=== PATIENT | male | born 1955 | race Caucasian/White ===

== ENCOUNTER 2022-03-11 09:38 | Observation (INO) ==
--- NOTE | 2021-10-28 10:42 | PAT Medication Instructions ---
Medication Instructions Date of Service October 28, 2021 Home Medications aspirin 325 mg tablet 325 mg PO QAM atorvastatin 80 mg tablet 80 mg PO HS calcium 600 mg capsule 600 mg PO BID cholecalciferol (vitamin D3) 50 mcg (2,000 unit) tablet (Vitamin D3) 50 mcg PO HS clobetasol 0.025 % topical cream 1 applic TOPICAL UD PRN clonidine 0.1 mg/24 hr weekly transdermal patch 0.1 mg TOPICAL WK darolutamide 300 mg tablet (Nubeqa) 300 mg PO UD diclofenac sodium 1 % topical gel 2 g TOPICAL QID PRN diltiazem HCl 360 mg capsule,24 hr,extended release 360 mg PO QAM empagliflozin 25 mg tablet (Jardiance) 25 mg PO QAM fexofenadine 180 mg tablet 180 mg PO QAM gabapentin 300 mg capsule 300 mg PO BID insulin aspart (niacinamide)(U-100) 100 unit/mL(3 mL) subcutaneous pen (Fiasp FlexTouch U-100 Insulin) 15 unit SUBCUT WM labetalol 100 mg tablet 100 mg PO BID leflunomide 20 mg tablet 20 mg PO QAM leuprolide (3 month) 11.25 mg (3 month) intramuscular syringe kit (Lupron Depot) 11.25 mg IM UD lisinopril 20 mg-hydrochlorothiazide 12.5 mg tablet 1 tab PO BID metformin 1,000 mg tablet 1,000 mg PO BID omega-3 fatty acids-vitamin E 1,000 mg capsule 1 cap PO HS omeprazole 20 mg capsule,delayed release 20 mg PO QAM oxycodone 5 mg capsule 5 mg PO Q4H PRN ropinirole 1 mg tablet 1 mg PO HS semaglutide 1 mg/dose (2 mg/1.5 mL) subcutaneous pen injector (Ozempic) 1 mg SUBCUT WK sertraline 50 mg tablet 50 mg PO BID Continue as directed clonidine 0.1 mg/24 hr weekly transdermal patch 0.1 mg TOPICAL WK (do not put on or near surgery site) semaglutide 1 mg/dose (2 mg/1.5 mL) subcutaneous pen injector (Ozempic) 1 mg SUBCUT WK ASK your surgeon for instructions diclofenac sodium 1 % topical gel 2 g TOPICAL QID PRN ASK your prescriber and surgeon darolutamide 300 mg tablet (Nubeqa) 300 mg PO UD leflunomide 20 mg tablet 20 mg PO QAM leuprolide (3 month) 11.25 mg (3 month) intramuscular syringe kit (Lupron Depot) 11.25 mg IM UD STOP taking 2 weeks before surgery omega-3 fatty acids-vitamin E 1,000 mg capsule 1 cap PO HS STOP taking 24 hours before surgery clobetasol 0.025 % topical cream 1 applic TOPICAL UD PRN ropinirole 1 mg tablet 1 mg PO HS DO NOT take the morning of surgery calcium 600 mg capsule 600 mg PO BID empagliflozin 25 mg tablet (Jardiance) 25 mg PO QAM fexofenadine 180 mg tablet 180 mg PO QAM insulin aspart (niacinamide)(U-100) 100 unit/mL(3 mL) subcutaneous pen (Fiasp FlexTouch U-100 Insulin) 15 unit SUBCUT WM lisinopril 20 mg-hydrochlorothiazide 12.5 mg tablet 1 tab PO BID metformin 1,000 mg tablet 1,000 mg PO BID Take morning of surgery With a small sip of water, OTHERWISE NOTHING TO EAT OR DRINK AFTER MIDNIGHT: aspirin 325 mg tablet 325 mg PO QAM diltiazem HCl 360 mg capsule,24 hr,extended release 360 mg PO QAM gabapentin 300 mg capsule 300 mg PO BID labetalol 100 mg tablet 100 mg PO BID omeprazole 20 mg capsule,delayed release 20 mg PO QAM oxycodone 5 mg capsule 5 mg PO Q4H PRN(okay to take up to 4 hours prior to surgery if needed) sertraline 50 mg tablet 50 mg PO BID Take evening before surgery atorvastatin 80 mg tablet 80 mg PO HS calcium 600 mg capsule 600 mg PO BID cholecalciferol (vitamin D3) 50 mcg (2,000 unit) tablet (Vitamin D3) 50 mcg PO HS gabapentin 300 mg capsule 300 mg PO BID labetalol 100 mg tablet 100 mg PO BID lisinopril 20 mg-hydrochlorothiazide 12.5 mg tablet 1 tab PO BID metformin 1,000 mg tablet 1,000 mg PO BID oxycodone 5 mg capsule 5 mg PO Q4H PRN(if needed) sertraline 50 mg tablet 50 mg PO BID Other Notes If you have any questions please call us at [phone] or [phone] or [phone] or [phone]
--- NOTE | 2021-11-01 10:33 | Anesthesiology Consultation ---
Date of Service November 01, 2021 Assessment & Plan (1) Encounter for pre-operative examination: Chart Review Chart Review: Acceptable Risk for Surgery (pending response from PCP re: anemia and preop Covid testing results ) and Patient seen in Pre Admission Testing -Will send note to PCP inquiring if anemia is baseline for patient or if further follow up needed - Check BSG AM DOS Per PAT appt on 11/01/21, patient denies any recent travel or large group activities. No known Covid positive exposures or Covid related symptoms. No known Covid infection in the past 90 days. Pt is vaccinated for Covid. Preop Covid testing scheduled 11/19/21 = will await results. Educated on importance of self quarantining, social distancing and wearing mask in public for the patient one week prior to surgery and after Covid testing done Teaching & Discussion Pre-Anesthesia Teaching/Discussion Notes: Instructed NPO after midnight before surgery,except medications with 15 cc of water. Medication instructions provided according to the PAT guidelines. History Surgery Operation Date: 11/23/21 07:00 Proposed Procedures p Right Total Knee Arthroplasty - Ryland Muse MD Height/Weight Height: 5 ft 8 in Weight: 114.7 kg Allergies Allergy/AdvReac Type Severity Reaction Status Date / Time Penicillins AdvReac Mild Diarrhea Verified 10/27/21 10:17 Medications Home Medications Medication Instructions Recorded Confirmed Last Taken aspirin 325 mg tablet 325 mg PO QAM 10/27/21 10/27/21 Unknown atorvastatin 80 mg tablet 80 mg PO HS 10/27/21 10/27/21 Unknown calcium 600 mg capsule 600 mg PO BID 10/27/21 10/27/21 Unknown cholecalciferol (vitamin D3) 50 50 mcg PO HS 10/27/21 10/27/21 Unknown mcg (2,000 unit) tablet (Vitamin D3) clobetasol 0.025 % topical cream 1 applic TOPICAL UD PRN 10/27/21 10/27/21 Unknown clonidine 0.1 mg/24 hr weekly 0.1 mg TOPICAL WK 10/27/21 10/27/21 Unknown transdermal patch darolutamide 300 mg tablet (Nubeqa) 300 mg PO UD 10/27/21 10/27/21 Unknown diclofenac sodium 1 % topical gel 2 g TOPICAL QID PRN 10/27/21 10/27/21 Unknown diltiazem HCl 360 mg capsule,24 360 mg PO QAM 10/27/21 10/27/21 Unknown hr,extended release empagliflozin 25 mg tablet 25 mg PO QAM 10/27/21 10/27/21 Unknown (Jardiance) fexofenadine 180 mg tablet 180 mg PO QAM 10/27/21 10/27/21 Unknown gabapentin 300 mg capsule 300 mg PO BID 10/27/21 10/27/21 Unknown insulin aspart 15 unit SUBCUT WM 10/27/21 10/27/21 Unknown (niacinamide)(U-100) 100 unit/mL(3 mL) subcutaneous pen (Fiasp FlexTouch U-100 Insulin) labetalol 100 mg tablet 100 mg PO BID 10/27/21 10/27/21 Unknown leflunomide 20 mg tablet 20 mg PO QAM 10/27/21 10/27/21 Unknown leuprolide (3 month) 11.25 mg (3 11.25 mg IM UD 10/27/21 10/27/21 Unknown month) intramuscular syringe kit (Lupron Depot) lisinopril 20 1 tab PO BID 10/27/21 10/27/21 Unknown mg-hydrochlorothiazide 12.5 mg tablet metformin 1,000 mg tablet 1,000 mg PO BID 10/27/21 10/27/21 Unknown omega-3 fatty acids-vitamin E 1 cap PO 10/27/21 10/27/21 Unknown 1,000 mg capsule omeprazole 20 mg capsule,delayed 20 mg PO [facility] 10/27/21 10/27/21 Unknown release oxycodone 5 mg capsule 5 mg PO Q4H PRN 10/27/21 10/27/21 Unknown ropinirole 1 mg tablet 1 mg PO HS 10/27/21 10/27/21 Unknown semaglutide 1 mg/dose (2 mg/1.5 1 mg SUBCUT WK 10/27/21 10/27/21 Unknown mL) subcutaneous pen injector (Ozempic) sertraline 50 mg tablet 50 mg PO BID 10/27/21 10/27/21 Unknown Past Medical History Medical History Depression Diabetes mellitus, type 2 Glucose stable Fibromyalgia Stable GERD (gastroesophageal reflux disease) Well controlled and stable History of anemia Hx of iron infusions in the past- no recent infusions History of prostate cancer Dx'ed around 2001 SURGERY (PROSTATECTOMY) AND RADIATION Follows with heme/onc in [place] - on Lupron and Nubeqa Hyperlipidemia Hypertension Restless leg syndrome Exercise / Class Metabolic Activity II 4-5 Yardwork/Stairs/Walk up hill (one flight of stairs - no chest pain or SOB- activity limited due to knee pain ) Past Family History Family History Brother Family history of diabetes mellitus Other No family history of adverse response to anesthesia Past Surgical History Surgical History H/O foot surgery LEFT H/O prostatectomy History of colonoscopy History of esophagogastroduodenoscopy (EGD) History of repair of rotator cuff LEFT History of tooth extraction Past Anesthesia History No Hx of Anesthesia Complications and No Family Hx of Anesthesia Complications History of PONV No Hx of PONV and No Hx of Motion Sickness Social History Smoking Status: Former smoker tobacco type: cigarettes Do You Dip or Chew Tobacco: No Smoking End Date: 20 YEARS AGO Hx Alcohol Use: No substance use type: does not use Review of Systems Hx of blood transfusion with prostate cancer- used own blood - s/p prostatectomy (2001) Patient denies chest pain, shortness of breath, dyspnea on exertion, cough, wheezing, palpitations. No hx of seizures, stroke, WI, apnea/snoring. No hx of blood clots. Physical Exam Vital Signs VITALS BP 160/80 (advised patient to monitor at home and call PCP if remains elevated) P 71 TEMP 98.6 SP02 94% RESP 16 Constitutional no acute distress ENMT Mouth: no TMJ clicking Thyromental Distance: > or= 3.5 Finger Breadths (3.5) Mallampati Class: I Missing molars Cap on top right front tooth Crowns to molars Neck + facial hair (advised patient to trim cordova ); neck extension not limited Respiratory normal respiratory effort; no respiratory distress Auscultation: lungs clear to auscultation bilaterally; no wheezes Cardiovascular Rate/Rhythm: regular rate and regular rhythm Heart Sounds: no murmur Vessels: no carotid bruit Musculoskeletal Spine: no pain with cervical ROM Extremities: extremities normal to inspection Psychiatric Orientation: alert Lab Results Anesthesia Preop Results Results Anesthesia Widget: WBC 7.13 K/uL (4.8-10.8) 11/01/21 Hgb 10.4 g/dL (14.0-18.0) L 11/01/21 Hct 34.5 % (42-52) L 11/01/21 Plt 309 K/uL (130-400) 11/01/21 Na 141 mmol/L (136-145) 11/01/21 K 4.6 mmol/L (3.5-5.1) 11/01/21 Cl 104 mmol/L (98-107) 11/01/21 CO2 31 mmol/L (21-32) 11/01/21 BUN 17 mg/dl (6-23) 11/01/21 Creat 1.00 mg/dl (0.6-1.4) 11/01/21 Glucose Level 111 mg/dl (70-99(Fasting)) H 11/01/21 PT 9.5 Seconds (9.0-12.0) 11/01/21 PTT 26.5 Seconds (21.0-31.0) 11/01/21 INR 0.9 (0.9-1.1) 11/01/21 HA1c 7.3 % (4.5-5.6) H 11/01/21 Blood Type B Positive 11/01/21 Antibody Screen NEGATIVE 11/01/21 Lab Comments: Anemia noted on preop labs- surgeon's office informed; also sent note to PCP Testing Electrocardiogram Date: 11/01/21 Findings: + NSR @ (68bpm) Normal EKG per cardio. Chest X-Ray Date: 11/01/21 Findings: + NAD
--- NOTE | 2021-11-19 17:48 | History and Physical Report ---
DATE OF ADMISSION: 11/26/2021. CHIEF COMPLAINT: Bilateral knee pain and discomfort, right side greater than the left. HISTORY OF PRESENT ILLNESS: The patient is a 66-year-old gentleman and former [employer] employee who presents specifically for surgical treatment of his right knee. He has got a long history of knee problems, right side a bit worse than the left. He has been through extensive conservative treatment provided by the [facility] in [place]. This has become less successful over time. The right knee bothers him all the time and the left side just a little bit less. He limps more as the day goes on. He has got chronic pain. It always hurts. The more he walks, the more it hurts. He has a walking tolerance of a couple blocks. He has lost 50 pounds over the past couple months intentionally and still limited by his knee pain. He has been taking oxycodone provided by his primary care doctor to manage his pain. PAST MEDICAL HISTORY: Significant for: 1. Anemia, chronic. 2. Hypertension. 3. Elevated cholesterol. 4. Diabetes x15 years. 5. Obesity with a 50-pound weight loss. 6. Gastroesophageal reflux disease. 7. Low back pain/sciatica. 8. Prostate cancer. PAST SURGICAL HISTORY: Includes: 1. Vasectomy. 2. Prostatectomy. 3. Rotator cuff surgery by Dr. Maria x2. 4. Foot surgery. ALLERGIES: PENICILLIN, WHICH CAUSES DIARRHEA. NOT A TRUE ANAPHYLAXIS. CURRENT MEDICATIONS: Include: 1. Aspirin 325 one daily. 2. Atenolol 100 mg daily. 3. Glipizide 10 mg. 4. Lovastatin 40 mg. 5. Metformin 1000 mg twice a day. 6. Multivitamin. 7. Nifedipine 60 mg. 8. Feldene. 9. Avandia. 10. Prilosec 20 mg a day. SOCIAL HISTORY: A 66-year-old male. Lives in [place]. He is a retired [employer] employee. . Does not smoke. FAMILY HISTORY: Noncontributory. REVIEW OF SYSTEMS: Significant for anemia. He is diabetic for 15 years. No chest pain or shortness of breath. No history of DVT or PE. PHYSICAL EXAMINATION: GENERAL: Shows a pleasant middle-aged male. Looks to be in reasonably good health. HEENT: Benign. NECK: Supple. No lymphadenopathy. LUNGS: Clear to auscultation. HEART: Regular rate and rhythm. ABDOMEN: Soft, nontender, nondistended. EXTREMITIES: Grossly neurovascularly intact except as follows. Examination of the right knee revealed patient ambulates with a bit of a limp. He has got varus alignment to his knee. Range of motion about 5 degrees short of full extension and 120 degrees of flexion. He has got bony hypertrophy medially. There is no instability. No pain with hip motion. X-RAYS: X-rays of the right knee reveal advanced right knee degenerative joint disease. He has got complete loss of medial joint space. He has got subchondral sclerosis. He has got tricompartment disease. He has pretty similar, but less severe disease in his left knee. ASSESSMENT: A 66-year-old male with multiple medical problems including obesity, hypertension, chronic anemia, elevated cholesterol, diabetes, obesity, prostate cancer with advanced bilateral knee degenerative joint disease, right side quite a bit worse than the left. He has lost 50 pounds without much relief in his symptoms. He is limited by his knee pain, would like to have his right knee fixed. PLAN: We will take him to the operating room and do right total knee replacement. The risks and benefits of the right knee replacement were explained to the patient include but not limited to DVT, PE, , infection, neurological injury, vascular injury, bleeding problem, pain, limited range of motion, stiffness, failure to relieve his symptoms, incomplete relief of symptoms, need for further surgery in the future, fracture, leg length inequality, nerve palsy, and persistent pain. The patient understands and desires to proceed. Informed consent was obtained. His preoperative workup showed that he was anemic with a hemoglobin 10.4. We checked with his medical doctor and this is his baseline state. We will likely provide him with some iron supplementation postoperatively. He is going to try and get his blood glucose under better control. He will hold his metformin on the morning of surgery and take the metoprolol and the Prilosec. He is planning on using [facility] program. Job ID: [id number] [facility]
--- NOTE | 2022-03-05 12:47 | History and Physical Report ---
DATE OF ADMISSION: 03/11/2022 CHIEF COMPLAINT: Bilateral knee pain and discomfort, right side greater than left. HISTORY OF PRESENT ILLNESS: The patient is a 67-year-old gentleman and former [employer] employee wh o presents for treatment of his knees, particularly surgical treatment of his right knee. He has a l sandra history of knee problems right side a bit worse than left. He has been through extensive conserv ative treatment provided by the [facility] in [place]. He has had shots, which have become les s successful over time. He describes global pain in his knee. The more he is up on it, the more it hurts. He limps more as the day goes on. He would like to proceed with knee replacement on the [facility] t side. He has been scheduled on multiple occasions and canceled most recently for COVID positive te st. The patient has lost about 50+ pounds over the past several months and still limited by his pain. PAST MEDICAL HISTORY: 1. Hypertension. 2. Elevated cholesterol. 3. Diabetes x15 years. 4. Obesity with BMI of 39. 5. Gastroesophageal reflux disease. 6. Low back pain/sciatica. 8. Prostate cancer. PAST SURGICAL HISTORY: Includes, 1. Vasectomy. 2. Prostatectomy. 3. Rotator cuff surgery x2. 4. Foot surgery. ALLERGIES: PENICILLIN, WHICH CAUSES DIARRHEA. CURRENT MEDICATIONS: Includes: 1. Aspirin 325 once a day. 2. Atenolol 100 mg daily. 3. Glipizide 10 mg daily. 4. Lovastatin 40 mg daily. 5. Metformin 1000 mg twice a day. 6. Multivitamin. 7. Nifedipine 60 mg daily. 8. Feldene. 9. Avandia. 10. Prilosec. SOCIAL HISTORY: A 67-year-old male. He is retired from [employer]. Lives in [place]. He is marrie d. He does not smoke. FAMILY HISTORY: Noncontributory. REVIEW OF SYSTEMS: Significant for longstanding diabetes. His A1c most recently was 7.1. No chest pain or shortness of breath. No DVT or PE. PHYSICAL EXAMINATION: GENERAL: Shows a pleasant middle-aged male. HEENT: Benign. NECK: Supple. No lymphadenopathy. LUNGS: Clear to auscultation. HEART: Regular rate and rhythm. ABDOMEN: Soft, nontender, nondistended. EXTREMITIES: Grossly neurovascularly intact except as follows. Examination of the right knee reveals the patient walks with a bit of a limp. He has varus alignment to his knee with a varus thrust with weightbearing. He has small knee effusion. Range of motion 5- 120. No instability. No pain with hip motion. X-RAYS: X-rays of the right knee from previously reviewed. It shows advanced right knee degenerativ e joint disease. He has complete loss of medial joint space. He has subchondral sclerosis. He has tricompartment disease. ASSESSMENT: This is a 67-year-old male, former [employer] employee with multiple medical comorbiditi es including longstanding diabetes, hypertension, elevated cholesterol, gastroesophageal reflux disea se, and struggles with pain. He has failed conservative measures and would like to have his knee fix ed. He has advanced knee arthritis. PLAN: We will take him to the operating room and do a right total knee replacement. The risks and b enefits of this procedure were explained to the patient include but not limited to DVT, PE, , in fection, neurological injury, vascular injury, bleeding problem, pain, limited range of motion, stiff ness, failure to relieve symptoms, etc. The patient understands and desires to proceed. Informed co nsent was obtained. He was reminded to take his metoprolol the morning of surgery along with Prilosec and hold on the met formin. We will see him back in 2 weeks postop. Job ID: [id number]
--- NOTE | 2022-03-08 12:06 | Anesthesiology Consultation ---
Date of Service March 08, 2022 Assessment & Plan (1) Encounter for pre-operative examination: Chart Review Chart Review: Acceptable Risk for Surgery (pending preop Covid testing results ) and Patient NOT seen in Pre Admission Testing - Check BSG AM DOS Per nursing assessment 03/08/2022, patient denies any recent travel. No known COVID infection in the past 90 days. Patient is fully vaccinated for COVID. No known Covid positive exposures or Covid related symptoms. Preop Covid testing scheduled 03/09/22= will await results History Surgery Operation Date: 11/26/21 10:40 Proposed Procedures p Right Total Knee Replacement - Ryland Muse MD Operation Date: 12/10/21 08:50 Proposed Procedures p Right Total Knee Arthroplasty - Ryland Muse MD Operation Date: 03/11/22 12:30 Proposed Procedures p Right Total Knee Replacement - Ryland Muse MD Height/Weight Height: 5 ft 8 in Weight: 113.398 kg Medications Home Medications Medication Instructions Recorded Confirmed Last Taken aspirin 325 mg tablet 325 mg PO QAM 10/27/21 03/11/22 03/04/22 atorvastatin 80 mg tablet 80 mg PO HS 10/27/21 03/11/22 03/10/22 20:00 calcium 600 mg capsule 600 mg PO BID 10/27/21 03/11/22 03/10/22 20:00 cholecalciferol (vitamin D3) 50 50 mcg PO HS 10/27/21 03/11/22 03/10/22 20:00 mcg (2,000 unit) tablet (Vitamin D3) clobetasol 0.025 % topical cream 1 applic TOPICAL UD PRN 10/27/21 03/11/22 02/09/22 clonidine 0.1 mg/24 hr weekly 0.1 mg TOPICAL WK 10/27/21 03/11/22 03/07/22 transdermal patch darolutamide 300 mg tablet (Nubeqa) 300 mg PO UD 10/27/21 03/11/22 03/08/22 diclofenac sodium 1 % topical gel 2 g TOPICAL QID PRN 10/27/21 03/11/22 03/09/22 20:00 diltiazem HCl 360 mg capsule,24 360 mg PO QAM 10/27/21 03/11/22 03/11/22 06:30 hr,extended release empagliflozin 25 mg tablet 25 mg PO QAM 10/27/21 03/11/22 03/11/22 06:30 (Jardiance) fexofenadine 180 mg tablet 180 mg PO QAM 10/27/21 03/11/22 03/11/22 06:30 gabapentin 300 mg capsule 300 mg PO BID 10/27/21 03/11/22 03/11/22 06:30 insulin aspart 15 unit SUBCUT WM 10/27/21 03/11/22 03/10/22 20:00 (niacinamide)(U-100) 100 unit/mL(3 15 units mL) subcutaneous pen (Fiasp FlexTouch U-100 Insulin) labetalol 100 mg tablet 100 mg PO BID 10/27/21 03/11/22 03/11/22 06:30 leflunomide 20 mg tablet (Arava) 20 mg PO QAM 10/27/21 03/11/22 03/11/22 06:30 leuprolide (3 month) 11.25 mg (3 11.25 mg IM UD 10/27/21 03/11/22 02/08/22 month) intramuscular syringe kit (Lupron Depot) lisinopril 20 1 tab PO BID 10/27/21 03/11/22 03/11/22 06:30 mg-hydrochlorothiazide 12.5 mg tablet metformin 1,000 mg tablet 1,000 mg PO BID 10/27/21 03/11/22 03/10/22 20:00 omega-3 fatty acids-vitamin E 1 cap PO 10/27/21 03/11/22 03/10/22 20:00 1,000 mg capsule omeprazole 20 mg capsule,delayed 20 mg PO [facility] 10/27/21 03/11/22 03/11/22 06:30 release oxycodone 5 mg capsule 5 mg PO Q4H PRN 10/27/21 03/11/22 03/10/22 21:00 ropinirole 1 mg tablet 1 mg PO 10/27/21 03/11/22 03/10/22 21:00 semaglutide 1 mg/dose (2 mg/1.5 1 mg SUBCUT WK 10/27/21 03/11/22 03/07/22 mL) subcutaneous pen injector (Ozempic) sertraline 50 mg tablet 50 mg PO BID 10/27/21 03/11/22 03/11/22 06:30 3-in-1 Commode #1 ea 11/16/21 Unknown aspirin 81 mg tablet,delayed 81 mg PO BID 45 Days #90 tab 12/07/21 03/11/22 Unknown release (Adult Aspirin Regimen) ketorolac 10 mg tablet 10 mg PO Q6 5 Days #20 tab 12/07/21 03/08/22 Unknown ondansetron HCl 4 mg tablet 4 mg PO Q6 PRN #30 tab 12/07/21 03/11/22 Unknown aspirin 81 mg tablet,delayed 81 mg PO BID 45 Days #90 tab 03/09/22 03/04/22 release (Eun Low Dose Aspirin) oxycodone 5 mg tablet 5 - 10 mg PO Q6 PRN #40 tab 03/09/22 Unknown sennosides 8.6 mg-docusate sodium 1 tab-cap PO DAILY #14 tab 03/09/22 03/11/22 Unknown 50 mg tablet (Senokot-S) tamsulosin 0.4 mg capsule (Flomax) 0.4 mg PO DAILY #7 cap 03/09/22 03/11/22 03/10/22 21:00 Active Medications Generic Name Dose Route Start Last Admin Trade Name Freq PRN Reason Stop Dose Admin Acetaminophen 1,000 mg 03/11/22 06:00 03/11/22 10:45 Acetaminophen 500 Mg Tab PO 03/11/22 18:00 1,000 mg PREOP RUFINO Administration Famotidine 20 mg 03/11/22 06:00 03/11/22 10:45 Famotidine 20 Mg Tab PO 03/11/22 18:00 20 mg PREOP RUFINO Administration Lactated Ringer's 1,000 mls @ 60 mls/hr 03/11/22 06:00 03/11/22 10:43 Lr IV 03/11/22 22:39 Not Given .[id number] RUFINO Lactated Ringer's 1,000 mls @ 15 mls/hr 03/11/22 06:00 03/11/22 10:43 Lr IV 03/11/22 18:00 15 mls/hr .Q24H RUFINO Administration Metoclopramide HCl 10 mg 03/11/22 06:00 03/11/22 10:45 Metoclopramide Hcl 10 Mg Tablet PO 03/11/22 18:00 10 mg PREOP RUFINO Administration Past Medical History Medical History Depression Diabetes mellitus, type 2 Glucose stable Fibromyalgia Stable GERD (gastroesophageal reflux disease) Well controlled and stable History of anemia Hx of iron infusions in the past- no recent infusions History of COVID-19 11/24/2021; asymptomatic History of prostate cancer Dx'ed around 2001 SURGERY (PROSTATECTOMY) AND RADIATION Follows with heme/onc in [place] - on Lupron and Nubeqa Hyperlipidemia Hypertension Restless leg syndrome Past Family History Family History Brother Family history of diabetes mellitus Other No family history of adverse response to anesthesia Past Surgical History Surgical History H/O foot surgery LEFT H/O prostatectomy History of colonoscopy History of esophagogastroduodenoscopy (EGD) History of repair of rotator cuff LEFT History of tooth extraction Social History Smoking Status: Former smoker tobacco type: cigarettes Do You Dip or Chew Tobacco: No Smoking End Date: 20 YEARS AGO Hx Alcohol Use: No Hx Substance Use: No substance use type: does not use Physical Exam Vital Signs Last Vital Signs Temp 36.9 C 03/11/22 10:28 Pulse 72 03/11/22 10:28 Resp 20 03/11/22 10:28 BP 127/72 03/11/22 10:28 Pulse Ox 97 03/11/22 10:28 Lab Results Anesthesia Preop Results Results Anesthesia Widget: WBC 7.19 K/uL (4.8-10.8) 02/21/22 Hgb 10.3 g/dL (14.0-18.0) L 02/21/22 Hct 33.9 % (42-52) L 02/21/22 Plt 313 K/uL (130-400) 02/21/22 Na 139 mmol/L (136-145) 02/21/22 K 4.2 mmol/L (3.5-5.1) 02/21/22 Cl 102 mmol/L (98-107) 02/21/22 CO2 30 mmol/L (21-32) 02/21/22 BUN 25 mg/dl (6-23) H 02/21/22 Creat 1.29 mg/dl (0.6-1.4) 02/21/22 Glucose Level 133 mg/dl (70-99(Fasting)) H 02/21/22 POC Glucose 143 mg/dl (70-99) H 03/11/22 PT 10.2 Seconds (9.0-12.0) 02/21/22 INR 1.0 (0.9-1.1) 02/21/22 HA1c 7.1 % (4.5-5.6) H 02/21/22 SARS-CoV-2, RNA, NAAT NEGATIVE (NEGATIVE) 03/11/22 Blood Type B Positive 02/21/22 Antibody Screen NEGATIVE 02/21/22 Testing Laboratory Results 03/11/22 10:00 POC Glucose 143 H Anemia chronic and stable. Hgb 10.4 and Hct 34.5 on 11/01/21 (pt seen in PAT for right TKA on 11/23/21- rescheduled due to Covid positive)- note sent to PCP - per 11/10/21 PCP note- PCP reviewed CBC- Hgb and Hct are stable for patient.Per PCP: "Ok for surgery." Electrocardiogram Date: 11/01/21 Findings: + NSR @ (68bpm) Normal EKG per cardio. Chest X-Ray Date: 11/01/21 Findings: + NAD
[~2022-03-11 09:38] MED LIST: ACETAMINOPHEN 500 MG TAB PO SCH; BUPIVACAINE LIPOSOME/PF 266 MG, BUPIVACAINE/EPINEPHRINE 50 ML, SODIUM CHLORIDE 0.9% 30 ... INFIL SCH; FAMOTIDINE 20 MG TAB PO SCH; LR 500ML BOLUS, THEN 15ML/HR IV SCH; LR 60ML/HR IV SCH; METOCLOPRAMIDE HCL 10 MG TABLET PO SCH; TRANEXAMIC ACID 1,000 MG **IV Intra-op IV SCH; ceFAZolin 2000MG 2,000 MG/15 ML SYR IV SCH
--- NOTE | 2022-03-11 11:06 | History & Physical Bridge Note ---
Date of Service March 11, 2022 History & Physical Bridge Note I have examined the patient, reviewed the History & Physical and in the interval since the performance of the History & Physical I have noted the following changes of clinical significance: no changes noted
[2022-03-11] MEDS ORDERED: MIDAZOLAM HCL 1 MG/ML 2ML VIAL ONE (12:00)
[2022-03-11] MEDS ORDERED: fentaNYL citrate 100 MCG/2 ML VIAL ONE (12:00)
[2022-03-11] MEDS ORDERED: fentaNYL citrate 100 MCG/2 ML VIAL IV PRN (12:13)
[2022-03-11] MEDS ORDERED: ONDANSETRON INJ 2 MG/ML 2 ML VIAL IV PRN ×2 (12:13→16:26)
[2022-03-11] MEDS ORDERED: ATROPINE SULFATE 0.1 MG/ML 10ML SYR IV PRN (12:13)
[2022-03-11] MEDS ORDERED: ePHEDrine sulfate 50 MG/ML AMP IV PRN (12:13)
[2022-03-11] MEDS ORDERED: PROPOFOL IV EMULSION 10 MG/ML 20 ML VIAL IV ONE (12:45)
[2022-03-11] MEDS ORDERED: SODIUM CHLORIDE 0.9% PF 50 ML VIAL ONE (13:28)
[2022-03-11] MEDS ORDERED: BUPIVACAINE/EPINEPHRINE 0.25% 1:200,000 30 ML VIAL ONE (13:28)
[2022-03-11] MEDS ORDERED: BUPIVACAINE LIPOSOME 1.3% 266 MG/20 ML VIAL ONE (13:29)
[2022-03-11] MEDS ORDERED: ePHEDrine sulfate 50 MG/ML AMP ONE (14:42)
--- NOTE | 2022-03-11 15:34 | Operative Report ---
PG Post Operative Report Pre & Post Diagnosis Operation Date: 11/26/21 10:40 <No data on this case meets the specified criteria> Operation Date: 12/10/21 08:50 <No data on this case meets the specified criteria> Operation Date: 03/11/22 12:30 Pre-Op Diagnosis: Right Knee Advanced Degenerative Joint Disease Post-Op Diagnosis: Right Knee Advanced Degenerative Joint Disease I identified the patient and participated in the time-out.: Yes Procedure Operation Date: 11/26/21 10:40 <No data on this case meets the specified criteria> Operation Date: 12/10/21 08:50 <No data on this case meets the specified criteria> Operation Date: 03/11/22 12:30 Actual Procedures p Right Total Knee Arthroplasty(Right) - Ryland Muse MD Surgeon Ryland Muse MD Coding Technician Marcel Romero PA-C Estimated Blood Loss 50 Findings Consistent with Post-Op Diagnosis Operative findings were advanced right knee DJD involving primarily the medial compartment. He extensive grade 4 change of the entire medial compartment. He had some bony destruction of the tibial plateau. Osteophytes mostly medially. Varus alignment to his knee with a moderate-sized joint effusion. Fluids 1300 cc Specimens Right knee sent for pathology Anesthesia Type Spinal MAC Complications none Disposition Accompanied Patient To Recovery: No Indications Patient is a 67-year-old gentleman has a long history of bilateral knee pain discomfort rates adequate bit worse than the left. Been through extensive conservative treatment of years which became less successful. He has been scheduled for knee replacement several times but canceled due to COVID issues. Now presents for surgical management. Description of Procedure Operative implants consist of: 1 Biomet Vanguard size 65 right posterior stabilized femoral component. 2. Biomet size 75 tibial tray. 3. 12 mm posterior stabilized polyethylene insert. 4. 31 x 8 all Paller patella. 6 the patient was taken the operating, identified, and placed on the operating table supine position. All contact areas were properly padded. IV antibiotics tried by anesthesia team. Spinal anesthetic and abductor canal block had been provided in the holding area. Patel catheter was placed in sterile fashion. A right thigh tent was then placed in the right lower extremities and prepped and draped in usual sterile fashion. The right leg was elevated exsanguinated with use of an Esmarch and the tourniq uet was set at 300 mmHg. An anterior approach of the right knee was then performed to longitudinal incision centered over the patella. Sharp dissection was carried through subcutaneous tissue down the extensor mechanism. A medial parapatellar arthrotomy incision was made. Some subperiosteal dissection was carried out medially. The fat pad was resected from Neath patella tendon. Lateral patellofemoral ligament was released. Patella subluxated laterally and the knee was flexed. The osteophytes were taken off distal femur. The ACL and PCL then released from distal femur and the tibia subluxated anteriorly. External tibial alignment jig was then placed in the interface of the tibia and adjusted 16 mm medially. Proximal tibial cut was made remove about a millimeter bone from the most deficient aspect of medial tibial plateau. Some osteophytes taken off medial and posterior medially. The tibia was then sized to a size 75. Attention drawn the femur. The distal femur stem with a sharp drill. Intramedullary canal was suction. A right 6 degree valgus cutting guide was placed. The distal femoral cutting block was pinned in place. Distal femoral cut was made to take an additional 3 mm bone off distal femur. The femur was then sized to a size 65. The AP cutting block was pinned parallel to the epicondylar axis which was 3 degrees of external rotation. The anterior cut, anterior chamfer, posterior cut, posterior chamfer cuts were made. The box cutting guide was placed in just slight lateral and the box cut was made. The knee was flexed. The remnants of the medial lateral menisci were excised. The osteophytes were taken off the posterior aspect the femur. A trial femoral component was placed. The tibial tray was pinned in maximum external rotation and the drill and stem punch were used to create defect in proximal tibia for the tibial tray. The knee was then trialed and the 12 mm insert fit most appropriately. Attention drawn the patella. The patella was cleaned of all soft tissues. Patella thickness measured 22 mm in thickness and was cut down to 13. Was sized to a size 31 patella. The lug holes were drilled for the 31 patella. The lateral osteophyte was removed. Patella button was placed. Knee was taken through range of motion patella tracked nicely within no thumbs test. Attention drawn to placing permanent components. All trial components were removed. Bone plug was placed in the distal femur limit blood loss. A double batch Palacos G cement was mixed. A Biomet Vanguard size 65 right posterior stabilized femoral component, a size 75 tibial tray, 12 mm posterior stabilized polyethylene insert, and a 31 x 8 all Paller patella then cemented in place. The knee was brought out into full extension until cement hardened. Final cement check was then performed. The pericapsular tissues were injected with total of 100 cc of combination of 20 cc of Exparel, 30 cc normal saline, 50 cc of quarter percent Marcaine with epinephrine. Patient did receive 1 g tranexamic acid. The tourniquet was then let down for final tourniquet time 59 minutes. Hemostasis assured use electrocautery. Extensor mechanism closed with combination 1 PDS suture #1 Vicryl suture in a [id number] fashion. Extensor mechanism checked found to be intact with subcutaneous tissue then closed with 2 Dexon suture in a buried interrupted fashion skin was closed skin albert. Leg was then cleaned and dried and sterile dressed with Xeroform, 4 x 4's, sterile cast padding, Dawson bandage were applied. Patient then transferred to the recovery room in stable condition. Patient tolerated procedure well and there were no complications. Marcel Rmoero, my physician promotions assistant sales marketing, was present for the entire procedure. His assistance was essential and required for appropriate patient positioning, prepping and draping, surgical exposure, performing the technical details of the operation, placement the implants, closure of the wound, and placement of the sterile bandage. I attest to the content of the Intraoperative Record and any orders documented therein. Any exceptions are noted below.
--- NOTE | 2022-03-11 16:12 | Anesthesiology Progress Note ---
Date of Service March 11, 2022 Anesthesia Post Procedure Vital Signs Vital Signs: Temp Pulse Pulse Resp BP Pulse Ox 03/11/22 15:55 72 16 117/67 90 03/11/22 15:45 69 18 137/58 L 94 03/11/22 15:35 69 14 119/67 93 03/11/22 15:27 36.8 C 73 18 109/64 99 03/11/22 10:28 36.9 C 72 20 127/72 97 Pain Intensity Right Knee: Pain Intensity: 5 Transfer of Care Handoff Completed per policy Notes Mental Status: alert / awake / arousable and participated in evaluation Patient Amnestic to Procedure: Yes Nausea / Vomiting: adequately controlled Pain: adequately controlled Airway Patency, RR, SpO2: stable & adequate BP & HR: stable & adequate Hydration State: stable & adequate Neuraxial Anesthesia: was administered and sensory block is resolving Anesthetic Complications: no major complications apparent and Pt Satisfied with anesthetic care
[2022-03-11] MEDS ORDERED: DEXTROSE 50% 50 ML SYRINGE IV PRN (16:26)
[2022-03-11] MEDS ORDERED: HYDROmorphone INJ 0.5 MG/0.5 ML SYR IV PRN (16:26)
[2022-03-11] MEDS ORDERED: MAGNESIUM HYDROXIDE SUSP 30 ML UDC PO PRN (16:26)
[2022-03-11] MEDS ORDERED: GLUCOSE 40% GEL 15 GM TUBE PO PRN (16:26)
[2022-03-11] MEDS ORDERED: CARBOHYDRATES FOR HYPOGLYCEMIA PO PRN (16:26)
[2022-03-11] MEDS ORDERED: GLUCAGON FOR INJ 1 MG VIAL SQ PRN (16:26)
[2022-03-11] MEDS ORDERED: METOCLOPRAMIDE HCL INJ 5 MG/ML 2 ML VIAL IV PRN (16:26)
[2022-03-11] MEDS ORDERED: bisacodyL 10 MG SUPP PR PRN (16:26)
[2022-03-11] MEDS ORDERED: NALOXONE HCL 0.4 MG/1 ML VIAL/CARP IV PRN (16:26)
[2022-03-11] MEDS ORDERED: ALUMINUM/MAGNESIUM SUSP 30 ML UDC PO PRN (16:26)
[2022-03-11] MEDS ORDERED: GLUCOSE 10 TAB/TUBE PO PRN (16:26)
[2022-03-11] MEDS ORDERED: LEUPROLIDE 11.25 MG IM SCH (16:26)
[2022-03-11] MEDS ORDERED: NON-FORMULARY MEDICATION (Semaglutide [Ozempic] 1 mg/dose (2 mg/1.5 mL) Pen Injector) SQ SCH (16:26)
[2022-03-11] MEDS ORDERED: PHARMACY GLYCEMIC MGMT CONSULT PRN (16:26)
[2022-03-11] MEDS ORDERED: ONDANSETRON 4 MG OD TAB PO PRN (16:38)
--- NOTE | 2022-03-11 16:42 | XRay Report ---
TWO VIEWS RIGHT KNEE CLINICAL HISTORY: Postoperative examination. FINDINGS: AP and crosstable lateral portable views of the right knee are obtained. A right knee arthr oplasty is in near anatomic alignment. There has been undersurface remodeling of the patella. No acut e fracture is seen. There are expected postoperative changes around the knee including skin clips, s oft tissue edema, and subcutaneous gas. IMPRESSION: Expected postoperative changes status post right knee arthroplasty. No acute fracture is seen. ACT 112: Negative or not required by law. Electronically signed by: Fidel Osorio M.D. 03/11/2022 4:41 PM
[2022-03-11] MEDS: SODIUM CHLORIDE 0.9% 1000ML 1,000 ML IV SCH (18:20)
[2022-03-11] MEDS: oxyCODONE HCL IR 5 MG TAB (IMMEDIATE RELEASE) PO PRN (18:23)
[2022-03-11] MEDS: ASCORBIC ACID 500 MG TAB PO SCH (18:31)
[2022-03-11] MEDS: KETOROLAC TROMETHAMINE 15 MG/ML VIAL IV SCH ×2 (18:31→22:30)
[2022-03-11] MEDS: CHECK CLONIDINE PATCH PLACEMENT SCH (18:32)
[2022-03-11] MEDS: ACETAMINOPHEN 500 MG TAB PO SCH (20:49)
[2022-03-11] MEDS: SERTRALINE HCL 50 MG TABLET PO SCH (20:51)
[2022-03-11] MEDS: DOCUSATE SODIUM 100 MG CAP PO SCH (20:52)
[2022-03-11] MEDS: CALCIUM CARBONATE 1250MG TAB PO SCH (20:52)
[2022-03-11] MEDS: ASPIRIN 81 MG ECTAB PO SCH (20:52)
[2022-03-11] MEDS: GABAPENTIN 300 MG CAP PO SCH (20:53)
[2022-03-11] MEDS: LABETALOL HCL 100 MG TAB PO SCH (20:55)
[2022-03-11] MEDS: LISINOPRIL/HCTZ 20/12.5MG 1 TAB TAB PO SCH (20:55)
[2022-03-11] MEDS: INSULIN ASPART PER UNIT SC SCH (20:55)
[2022-03-11] MEDS ORDERED: OMEGA-3 (PURIFIED FISH OIL) 1 GM CAP PO SCH (21:00)
[2022-03-11] MEDS ORDERED: ATORVASTATIN 40 MG TAB PO SCH (21:00)
[2022-03-11] MEDS ORDERED: SENNA 8.6 MG TAB PO SCH (21:00)
[2022-03-11] MEDS ORDERED: rOPINIRole HCL 1 MG TABLET PO SCH (21:00)
[2022-03-11] MEDS ORDERED: CHOLECALCIFEROL 1,000 UNITS 25 MCG TAB PO SCH (21:00)
[2022-03-11] MEDS: TAPENTADOL HCL ER 50 MG TABCR PO SCH (21:17)
[2022-03-11] MEDS ORDERED: TRANEXAMIC ACID / 0.7% NACL 1,000 MG/100 ML BAG IV SCH (21:30)
[2022-03-11] MEDS: ceFAZolin 2000MG 2,000 MG/15 ML SYR IV SCH (22:30)
[2022-03-11] MEDS ORDERED: cloNIDine HCL 0.1 MG/24 HR TRANSDERM SYS TD ONE (23:00)
[2022-03-12] MEDS: CHECK CLONIDINE PATCH PLACEMENT SCH ×2 (00:30→08:27)
[2022-03-12] MEDS: KETOROLAC TROMETHAMINE 15 MG/ML VIAL IV SCH ×2 (03:57→10:16)
[2022-03-12] MEDS: SODIUM CHLORIDE 0.9% 1000ML 1,000 ML IV SCH (03:58)
[2022-03-12] MEDS: oxyCODONE HCL IR 5 MG TAB (IMMEDIATE RELEASE) PO PRN ×2 (04:25→11:46)
[2022-03-12] MEDS: ceFAZolin 2000MG 2,000 MG/15 ML SYR IV SCH (05:46)
[2022-03-12] MEDS: ACETAMINOPHEN 500 MG TAB PO SCH (05:46)
[2022-03-12 06:23] LABS: Hematocrit (blood only) 31.3 % (42-52); Hemoglobin 9.6 g/dL (14.0-18.0); Mean Corpuscular Hemoglobin 27.4 pg (25-34); Mean Corpuscular Hgb Conc 30.7 g/dL (32-36); Mean Corpuscular Volume 89.4 fL (80-100); Mean Platelet Volume 9.4 fL (7.4-10.4); Platelet Count 234 K/uL (130-400); RDW Coefficient of Variation 18.9 % (11.5-14.5); RDW Standard Deviation 61.5 fL (36.4-46.3)
[2022-03-12 06:54] LABS: BUN Creatinine Ratio 17.1 (10-20); Calcium 8.5 mg/dl (8.5-10.1); Creatinine Clr Calc Pharmacy 67.1 ml/min; Est GFR (African American) 65.1 ml/min; Est GFR (Non-African American) 56.2 ml/min
--- NOTE | 2022-03-12 07:26 | Orthopedic Progress Note ---
Date of Service March 12, 2022 Assessment & Plan (1) Status post right knee replacement: Overall he is doing fairly well. He is not having too much pain in the right knee. He is on aspirin for DVT prophylaxis. He will be seen by physical therapy today for ambulation and range of motion exercises. He can be discharged home later today. He will follow-up with orthopedics in 2 weeks. Subjective Gene was seen and examined at bedside this morning. Overall is doing fairly well. Is not having much pain in the right knee. He was sitting at a chair when I came in the room. He was able to get some sleep last night. Is no complaints. Review of Systems All systems reviewed & are unremarkable except as noted in HPI & below. Physical Exam On physical examination of the right knee, the dressing is clean and dry. He sitting with his knee flexed about 80 degrees. He is active dorsiflexion plantarflexion of his right ankle.. Results & Data Results & Data Laboratory Results . Diagnostic Findings . PG Care Time/CCT Total # of Minutes Spent Total Time Spent with Patient: Total time spent is greater than 50% in coordination of care (as documented) at patient's floor/unit and/or counseling patient: Coding Level of Care Code 32137 Post Operative Follow-Up Diagnoses Status post right knee replacement Z96.651
[2022-03-12] MEDS: DOCUSATE SODIUM 100 MG CAP PO SCH (08:27)
[2022-03-12] MEDS: SERTRALINE HCL 50 MG TABLET PO SCH (08:27)
[2022-03-12] MEDS: GABAPENTIN 300 MG CAP PO SCH (08:28)
[2022-03-12] MEDS: LISINOPRIL/HCTZ 20/12.5MG 1 TAB TAB PO SCH (08:28)
[2022-03-12] MEDS: CALCIUM CARBONATE 1250MG TAB PO SCH (08:28)
[2022-03-12] MEDS: ASPIRIN 81 MG ECTAB PO SCH (08:28)
[2022-03-12] MEDS: ASCORBIC ACID 500 MG TAB PO SCH (08:29)
[2022-03-12] MEDS: LABETALOL HCL 100 MG TAB PO SCH (08:30)
[2022-03-12] MEDS: TAPENTADOL HCL ER 50 MG TABCR PO SCH (08:36)
[2022-03-12] MEDS: INSULIN ASPART PER UNIT SC SCH (08:43)
[2022-03-12] MEDS ORDERED: dilTIAZem ER 180 MG CAPCR PO SCH (09:00)
[2022-03-12] MEDS ORDERED: FEXOFENADINE HCL 180 MG TAB PO SCH (09:00)
[2022-03-12] MEDS ORDERED: PANTOprazole 40 MG TAB PO SCH (09:00)
[2022-03-12] MEDS ORDERED: LEFLUNOMIDE 10 MG TAB PO SCH (09:00)
[2022-03-12] MEDS ORDERED: DOCUSATE SODIUM/SENNA 50/8.6MG TAB PO SCH (09:00)
[2022-03-12] MEDS ORDERED: TAMSULOSIN HCL 0.4 MG CAP PO SCH (09:00)
[2022-03-12] MEDS ORDERED: MULTIVITAMIN TAB PO SCH (09:00)
[2022-03-14] MEDS ORDERED: cloNIDine HCL 0.1 MG/24 HR TRANSDERM SYS TD SCH (09:00)
--- NOTE | 2022-03-17 15:18 | Discharge Summary ---
Date of Service March 17, 2022 Discharge Data Procedures Performed Operation Date: 11/26/21 10:40 <No data on this case meets the specified criteria> Operation Date: 12/10/21 08:50 <No data on this case meets the specified criteria> Operation Date: 03/11/22 12:30 Actual Procedures p Right Total Knee Arthroplasty(Right) - Ryland Muse MD Hospital Course (1) Status post total right knee replacement: This is a 67 year old patient admitted on 03/11/22 and underwent total knee arthroplasty. He tolerated the procedure well and there were no complications. Transferred to the PACU post op and later to the orthopedic floor for further care. He was given ancef for antibiotic prophylaxis. He was also given ETHAN stockings, SCDs, and aspirin for DVT prophylaxis. Hemoglobin, hematocrit, and vital signs were monitored during his hospital stay and remained stable. Did not require any blood transfusions. There were no complications during his hospital stay. By post op day #1 the patient was tolerating a diabetic diet, pain was reasonably controlled with oral pain medicine, and he was participating in physical therapy. On post op day #1 the patient was discharged home and set up with home health care. He was given printed discharge instructions including prescriptions for aspirin, zofran, toradol, oxycodone and flomax. Continue physical therapy, weight bearing as tolerated. Continue ETHAN stockings. Follow up approximately 2 weeks post op or sooner if there are problems or concerns. Coding Level of Care Code None Diagnoses Status post total right knee replacement Z96.651
== END 2022-03-12 12:44 | disposition home health service (06) ==
LOC: ASU 09:38 → PACUINP 09:38 → 3N 18:10

== ENCOUNTER 2023-12-08 06:48 | Observation (INO) ==
--- NOTE | 2023-11-07 09:27 | PAT Medication Instructions ---
Medication Instructions Date of Service November 07, 2023 Home Medications Medication Instructions Recorded 3-in-1 Commode #1 ea 11/16/21 clindamycin HCl 300 mg capsule 600 mg (2 x 300 mg) PO ONCE #4 caps 07/06/23 atorvastatin 80 mg tablet 80 mg PO HS clobetasol 0.025 % topical cream 1 applic topical UD PRN Rash darolutamide 300 mg tablet (Nubeqa) 600 mg PO BID diclofenac sodium 1 % topical gel 2 g topical QID PRN Pain diltiazem HCl 360 mg capsule,24 hr,extended release 360 mg PO QAM empagliflozin 25 mg tablet (Jardiance) 25 mg PO QAM fexofenadine 180 mg tablet 180 mg PO QAM gabapentin 300 mg capsule 300 mg PO TID insulin aspart (niacinamide)(U-100) 100 unit/mL(3 mL) subcutaneous pen (Fiasp FlexTouch U-100 Insulin) 10 unit subcut QAM labetalol 100 mg tablet 100 mg PO BID leflunomide 20 mg tablet (Arava) 20 mg PO QAM leuprolide (3 month) 11.25 mg (3 month) intramuscular syringe kit (Lupron Depot) 11.25 mg IM UD lisinopril 20 mg-hydrochlorothiazide 12.5 mg tablet 1 tab PO BID metformin 1,000 mg tablet 1,000 mg PO BID omega-3 fatty acids-vitamin E 1,000 mg capsule 1 cap PO HS omeprazole 20 mg capsule,delayed release 20 mg PO QAM ropinirole 1 mg tablet 1 mg PO BID semaglutide 1 mg/dose (2 mg/1.5 mL) subcutaneous pen injector (Ozempic) 2 mg subcut WK sertraline 50 mg tablet 50 mg PO BID clindamycin HCl 300 mg capsule 600 mg (2 x 300 mg) PO ONCE aspirin 325 mg capsule 325 mg PO QAM bupropion HCl 150 mg 24 hr tablet, extended release 150 mg PO QAM calcium carbonate 600 mg-vitamin D3 5 mcg (200 unit) tablet 1 tab PO BID cholecalciferol (vitamin D3) 50 mcg (2,000 unit) capsule (Vitamin D3) 50 mcg PO QAM hydroxyzine HCl 25 mg tablet 25 mg PO TID oxycodone 5 mg tablet 5 mg PO TID PRN Pain solifenacin 5 mg tablet 5 mg PO HS Continue as directed clindamycin HCl 300 mg capsule 600 mg (2 x 300 mg) PO ONCE ASK your surgeon for instructions diclofenac sodium 1 % topical gel 2 g topical QID PRN Pain ASK your prescriber and surgeon darolutamide 300 mg tablet (Nubeqa) 600 mg PO BID leflunomide 20 mg tablet (Arava) 20 mg PO QAM leuprolide (3 month) 11.25 mg (3 month) intramuscular syringe kit (Lupron Depot) 11.25 mg IM UD aspirin 325 mg capsule 325 mg PO QAM STOP taking 2 weeks before surgery (or as soon as possible if surgery is within 2 weeks) omega-3 fatty acids-vitamin E 1,000 mg capsule 1 cap PO HS STOP taking 24 hours before surgery clobetasol 0.025 % topical cream 1 applic topical UD PRN Rash diclofenac sodium 1 % topical gel 2 g topical QID PRN Pain (unless given other instructions by surgeon) DO NOT take the morning of surgery fexofenadine 180 mg tablet 180 mg PO QAM insulin aspart (niacinamide)(U-100) 100 unit/mL(3 mL) subcutaneous pen (Fiasp FlexTouch U-100 Insulin) 10 unit subcut QAM lisinopril 20 mg-hydrochlorothiazide 12.5 mg tablet 1 tab PO BID metformin 1,000 mg tablet 1,000 mg PO BID calcium carbonate 600 mg-vitamin D3 5 mcg (200 unit) tablet 1 tab PO BID cholecalciferol (vitamin D3) 50 mcg (2,000 unit) capsule (Vitamin D3) 50 mcg PO QAM hydroxyzine HCl 25 mg tablet 25 mg PO TID Take morning of surgery With a small sip of water, OTHERWISE NOTHING TO EAT OR DRINK AFTER MIDNIGHT: diltiazem HCl 360 mg capsule,24 hr,extended release 360 mg PO QAM gabapentin 300 mg capsule 300 mg PO TID labetalol 100 mg tablet 100 mg PO BID omeprazole 20 mg capsule,delayed release 20 mg PO QAM ropinirole 1 mg tablet 1 mg PO BID sertraline 50 mg tablet 50 mg PO BID bupropion HCl 150 mg 24 hr tablet, extended release 150 mg PO QAM oxycodone 5 mg tablet 5 mg PO TID PRN Pain (if needed) Take evening before surgery atorvastatin 80 mg tablet 80 mg PO HS gabapentin 300 mg capsule 300 mg PO TID labetalol 100 mg tablet 100 mg PO BID lisinopril 20 mg-hydrochlorothiazide 12.5 mg tablet 1 tab PO BID metformin 1,000 mg tablet 1,000 mg PO BID ropinirole 1 mg tablet 1 mg PO BID sertraline 50 mg tablet 50 mg PO BID calcium carbonate 600 mg-vitamin D3 5 mcg (200 unit) tablet 1 tab PO BID hydroxyzine HCl 25 mg tablet 25 mg PO TID oxycodone 5 mg tablet 5 mg PO TID PRN Pain (if needed) solifenacin 5 mg tablet 5 mg PO HS STOP 7 days prior to surgery semaglutide 1 mg/dose (2 mg/1.5 mL) subcutaneous pen injector (Ozempic) 2 mg subcut WK STOP taking 3 days before surgery empagliflozin 25 mg tablet (Jardiance) 25 mg PO QAM Other Notes If you have any questions please call us at [phone] or [phone] or [phone] or [phone]
--- NOTE | 2023-11-13 13:50 | Anesthesiology Consultation ---
Date of Service November 13, 2023 Assessment & Plan (1) Encounter for pre-operative examination: - check BGS am DOS. - semaglutide instructions: Patient informed at PAT visit to stop 7 days prior to surgery-voiced understanding. Patient advised to check with prescriber to see if alternative diabetic management changes recommended while holding semaglutide- if so, patient to call back to PAT to update chart and discuss if any further preop medication instructions needed. - Outpatient joint assessment: Patient is currently scheduled for inpatient pathway. If re-evaluated and patient/surgeon requests outpatient pathway, patient is acceptable candidate for outpatient joint program from anesthesia standpoint pending surgeon's office assessment of pt motivation/support/completion of same day joint program preop requirements. Chart Review Chart Review: Acceptable Risk for Surgery and Patient seen in Pre Admission Testing Teaching & Discussion Pre-Anesthesia Teaching/Discussion Notes: Instructed NPO after midnight before surgery, except medications with 15 cc of water. Medication instructions provided according to the PAT guidelines. History Surgery Operation Date: 12/08/23 10:40 Proposed Procedures p Left Total Knee Arthroplasty - Ryland Muse MD Height/Weight Height: 5 ft 8 in Weight: 101.4 kg Allergies Allergy/AdvReac Type Severity Reaction Status Date / Time Penicillins AdvReac Mild Diarrhea Verified 11/03/23 12:21 Medications Home Medications Medication Instructions Recorded Confirmed Last Taken atorvastatin 80 mg tablet 80 mg PO HS 10/27/21 11/03/23 03/10/22 20:00 clobetasol 0.025 % topical cream 1 applic topical UD PRN Rash 10/27/21 11/03/23 02/09/22 darolutamide 300 mg tablet (Nubeqa) 600 mg PO BID 10/27/21 11/03/23 03/08/22 diclofenac sodium 1 % topical gel 2 g topical QID PRN Pain 10/27/21 11/03/23 03/09/22 20:00 diltiazem HCl 360 mg capsule,24 360 mg PO QAM 10/27/21 11/03/23 03/11/22 06:30 hr,extended release empagliflozin 25 mg tablet 25 mg PO QAM 10/27/21 11/03/23 03/11/22 06:30 (Jardiance) fexofenadine 180 mg tablet 180 mg PO QAM 10/27/21 11/03/23 03/11/22 06:30 gabapentin 300 mg capsule 300 mg PO TID 10/27/21 11/03/23 03/11/22 06:30 insulin aspart 10 unit subcut QAM 10/27/21 11/03/23 03/10/22 20:00 (niacinamide)(U-100) 100 unit/mL(3 15 units mL) subcutaneous pen (Fiasp FlexTouch U-100 Insulin) labetalol 100 mg tablet 100 mg PO BID 10/27/21 11/03/23 03/11/22 06:30 leflunomide 20 mg tablet (Arava) 20 mg PO QAM 10/27/21 11/03/23 03/11/22 06:30 leuprolide (3 month) 11.25 mg (3 11.25 mg IM UD 10/27/21 11/03/23 02/08/22 month) intramuscular syringe kit (Lupron Depot) lisinopril 20 1 tab PO BID 10/27/21 11/03/23 03/11/22 06:30 mg-hydrochlorothiazide 12.5 mg tablet metformin 1,000 mg tablet 1,000 mg PO BID 10/27/21 11/03/23 03/10/22 20:00 omega-3 fatty acids-vitamin E 1 cap PO HS 10/27/21 03/11/22 03/10/22 20:00 1,000 mg capsule omeprazole 20 mg capsule,delayed 20 mg PO [facility] 10/27/21 11/03/23 03/11/22 06:30 release ropinirole 1 mg tablet 1 mg PO BID 10/27/21 11/03/23 03/10/22 21:00 semaglutide 1 mg/dose (2 mg/1.5 2 mg subcut WK 10/27/21 11/03/23 03/07/22 mL) subcutaneous pen injector (Ozempic) sertraline 50 mg tablet 50 mg PO BID 10/27/21 11/03/23 03/11/22 06:30 3-in-1 Commode #1 ea 11/16/21 Unknown clindamycin HCl 300 mg capsule 600 mg (2 x 300 mg) PO ONCE #4 caps 07/06/23 11/03/23 Unknown aspirin 325 mg capsule 325 mg PO QA 11/03/23 11/03/23 Unknown bupropion HCl 150 mg 24 hr tablet, 150 mg PO QAM 11/03/23 11/03/23 Unknown extended release calcium carbonate 600 mg-vitamin 1 tab PO BID 11/03/23 11/03/23 Unknown D3 5 mcg (200 unit) tablet cholecalciferol (vitamin D3) 50 50 mcg PO QAM 11/03/23 11/03/23 Unknown mcg (2,000 unit) capsule (Vitamin D3) hydroxyzine HCl 25 mg tablet 25 mg PO TID 11/03/23 11/03/23 Unknown oxycodone 5 mg tablet 5 mg PO TID PRN Pain 11/03/23 11/03/23 Unknown solifenacin 5 mg tablet 5 mg PO HS 11/03/23 11/03/23 Unknown Past Medical History Medical History (Updated 11/13/23 @ 13:59 by Aleyda Yanes PA-C) Anxiety and depression Diabetes mellitus, type 2 IDDM Fibromyalgia GERD (gastroesophageal reflux disease) controlled, stable per pt History of anemia Hx of iron infusions in the past- no recent infusions History of prostate cancer 2001, prostatectomy and radiation Follows with heme/onc in [place] - on Lupron and Nubeqa Hyperlipidemia Hypertension controlled, stable per pt Restless leg syndrome Patient denies h/o stroke, seizures, heart attack, heart failure, or blood clots/DVTs . Exercise / Class Metabolic Activity III < 4 Walking/Shop/Light housework (denies chest discomfort or shortness of breath with usual activities) Past Family History Family History Brother Family history of diabetes mellitus Other No family history of adverse response to anesthesia Past Surgical History Surgical History H/O foot surgery left H/O prostatectomy History of colonoscopy History of esophagogastroduodenoscopy (EGD) History of repair of rotator cuff left History of tooth extraction History of total knee replacement rt Past Anesthesia History No Hx of Anesthesia Complications and No Family Hx of Anesthesia Complications History of PONV No Hx of PONV and No Hx of Motion Sickness Social History Smoking Status: Former smoker tobacco type: cigarettes Do You Dip or Chew Tobacco: No Smoking End Date: 25+ years ago Hx Alcohol Use: Yes alcohol intake frequency: holidays/special occasions only substance use type: does not use Review of Systems Patient denies chest pain, shortness of breath, dyspnea on exertion, snoring, witnessed apneas, fever, chills, cough, wheezing, or palpitations. Physical Exam Vital Signs Vitals BP 136/79 P 89 TEMP 98.1 SP02 94% on RA RESP 17 Physical Patient resting comfortably in chair in no acute distress, alert and oriented, responding appropriately throughout visit Full cervical extension range of motion without pain TMD 3.5 finger breadths Mallampati Score 2 Dentition: several caps/crowns, denies chipped or loose teeth, implants or bridges Lungs: normal respiratory effort. Good air movement, clear throughout to auscultation, no adventitious breath sounds Cardiac: regular rate and rhythm, no murmurs noted Carotid arteries: negative bruit bilat Lab Results Anesthesia Preop Results Results Anesthesia Widget: WBC 5.94 K/ul (4.8-10.8) 11/13/23 Hgb 11.9 g/dl (14.0-18.0) L 11/13/23 Hct 38.2 % (42.0-52.0) L 11/13/23 Plt 225 K/uL (130-400) 11/13/23 Na 140 mmol/L (136-145) 11/13/23 K 4.7 mmol/L (3.5-5.1) 11/13/23 Cl 103 mmol/L (98-107) 11/13/23 CO2 30 mmol/L (21-32) 11/13/23 BUN 21 mg/dl (6-23) 11/13/23 Creat 1.34 mg/dl (0.6-1.4) 11/13/23 Glucose Level 244 mg/dl (70-99(Fasting)) H 11/13/23 PT 10.5 Seconds (9.0-12.0) 11/13/23 PTT 28 Seconds (21-31) 11/13/23 INR 1.0 (0.9-1.1) 11/13/23 HA1c 7.0 % (4.5-5.6) H 11/13/23 Blood Type B Positive 11/13/23 Antibody Screen NEGATIVE 11/13/23 Testing Electrocardiogram Date: 11/13/23 Sinus rhythm with occasional PVCs, rate 85 bpm Chest X-Ray Date: 11/13/23 No acute process.
--- NOTE | 2023-12-03 09:09 | History & Physical Report ---
Date of Service December 03, 2023 Assessment & Plan (1) Left knee DJD: 68-year-old gentleman with multiple medical comorbidities including diabetes, elevated cholesterol, hypertension, Gastrosoft reflux disease, chronic back pain, fibromyalgia and depression now 2 years out from a right knee replacement with advanced left knee DJD. He did like to proceed with left knee replacement. Plan: Demond taken the operative left total knee replacement. The risks Mente this procedure planed the patient clued but not limited to DVT PE infection neurological and vascular bleeding palm pain limb range of motion persistent pain etc. The patient understands and desires to proceed. Informed consent is obtained. He was told to hold his Ozempic 7 days preop along with the metformin the morning of surgery. He will take his omeprazole and the labetalol. Will use sliding scale insulin coverage in the hospital. He is planned to be discharged home use [facility] home health program. Will use aspirin for DVT prophylaxis. (2) Status post total right knee replacement: History of Present Illness Chief Complaint: . Persistent progressive left knee pain. Primary Care Provider: Wilder Gore DO . Patient is a 68-year-old gentleman [employer] employee who presents for follow-up and treatment of his knees. He is about 2 years out from a right knee replacement which is done pretty well. Continues to be bothered by left knee pain discomfort that is gradually gotten worse over time. He describes global pain. More he is up and onto more it hurts. Limps more as the day goes on. Is been to extensive conservative treatment which become less successful over time. He is happy with his right knee and would like to have his left knee replaced. Allergies Allergy/AdvReac Type Severity Reaction Status Date / Time Penicillins AdvReac Mild Diarrhea Verified 11/03/23 12:21 Home Medications Medication Instructions Recorded Confirmed Type atorvastatin 80 mg tablet 80 mg PO HS 10/27/21 11/03/23 History clobetasol 0.025 % topical cream 1 applic topical UD PRN Rash 10/27/21 11/03/23 History darolutamide 300 mg tablet (Nubeqa) 600 mg PO BID 10/27/21 11/03/23 History diclofenac sodium 1 % topical gel 2 g topical QID PRN Pain 10/27/21 11/03/23 History diltiazem HCl 360 mg capsule,24 360 mg PO QAM 10/27/21 11/03/23 History hr,extended release empagliflozin 25 mg tablet 25 mg PO QAM 10/27/21 11/03/23 History (Jardiance) fexofenadine 180 mg tablet 180 mg PO QAM 10/27/21 11/03/23 History gabapentin 300 mg capsule 300 mg PO TID 10/27/21 11/03/23 History insulin aspart 10 unit subcut QAM 10/27/21 11/03/23 History (niacinamide)(U-100) 100 unit/mL(3 mL) subcutaneous pen (Fiasp FlexTouch U-100 Insulin) labetalol 100 mg tablet 100 mg PO BID 10/27/21 11/03/23 History leflunomide 20 mg tablet (Arava) 20 mg PO QAM 10/27/21 11/03/23 History leuprolide (3 month) 11.25 mg (3 11.25 mg IM UD 10/27/21 11/03/23 History month) intramuscular syringe kit (Lupron Depot) lisinopril 20 1 tab PO BID 10/27/21 11/03/23 History mg-hydrochlorothiazide 12.5 mg tablet metformin 1,000 mg tablet 1,000 mg PO BID 10/27/21 11/03/23 History omega-3 fatty acids-vitamin E 1 cap PO HS 10/27/21 03/11/22 History 1,000 mg capsule omeprazole 20 mg capsule,delayed 20 mg PO QA 10/27/21 11/03/23 History release ropinirole 1 mg tablet 1 mg PO BID 10/27/21 11/03/23 History semaglutide 1 mg/dose (2 mg/1.5 2 mg subcut WK 10/27/21 11/03/23 History mL) subcutaneous pen injector (Ozempic) sertraline 50 mg tablet 50 mg PO BID 10/27/21 11/03/23 History 3-in-1 Commode #1 ea 11/16/21 Rx clindamycin HCl 300 mg capsule 600 mg (2 x 300 mg) PO ONCE #4 caps 07/06/23 11/03/23 Rx aspirin 325 mg capsule 325 mg PO QAM 11/03/23 11/03/23 History bupropion HCl 150 mg 24 hr tablet, 150 mg PO QAM 11/03/23 11/03/23 History extended release calcium carbonate 600 mg-vitamin 1 tab PO BID 11/03/23 11/03/23 History D3 5 mcg (200 unit) tablet cholecalciferol (vitamin D3) 50 50 mcg PO QAM 11/03/23 11/03/23 History mcg (2,000 unit) capsule (Vitamin D3) hydroxyzine HCl 25 mg tablet 25 mg PO TID 11/03/23 11/03/23 History oxycodone 5 mg tablet 5 mg PO TID PRN Pain 11/03/23 11/03/23 History solifenacin 5 mg tablet 5 mg PO HS 11/03/23 11/03/23 History Past Med/Surg History Medical History (Updated 12/03/23 @ 09:08 by Ryland Muse MD) Left knee DJD Anxiety and depression Fibromyalgia GERD (gastroesophageal reflux disease) controlled, stable per pt Diabetes mellitus, type 2 IDDM History of prostate cancer 2001, prostatectomy and radiation Follows with heme/onc in [place] - on Lupron and Nubeqa History of anemia Hx of iron infusions in the past- no recent infusions Restless leg syndrome Hypertension controlled, stable per pt Hyperlipidemia Surgical History History of total knee replacement rt History of repair of rotator cuff left H/O foot surgery left History of esophagogastroduodenoscopy (EGD) History of colonoscopy H/O prostatectomy History of tooth extraction Family History Brother Family history of diabetes mellitus Other No family history of adverse response to anesthesia Social History Smoking Status: Former smoker Tobacco Type: Cigarettes Smoking End Date: 25+ years ago; Second Hand Exposure: Yes (in the past); Do You Dip or Chew Tobacco: No; Hx Alcohol Use: Yes Preferred Language: Nauruan Communication Ability: Effective Pneumatic System Conveyor Operator Required: No Beliefs That Will Affect Care: None marital status: Current Living Situation: Spouse Feels Safe at Home: Yes Safety Concerns: Feels Safe At This Time Assistive Devices: Glasses and Hearing Aid - Bilateral Review of Systems All systems reviewed & are unremarkable except as noted in HPI & below. Physical Exam . Physical examination was a pleasant middle-age male. Looks in pretty decent health. Examination of the knees reveal patient ambulates independently. Examination of the right knee reveals a well-healed incision. He is got anatomic alignment to the knee. No swelling. Range of motion 0-1 20. Examination left knee reveals a varus alignment to his knee. He is tender over the medial joint line. He is got osteophytes medially. Range of motion is 5-1 20. No instability. No pain with hip motion. Constitutional WD/WN, vitals as above Neck trachea midline, no thyromegaly Respiratory normal respiratory effort, lungs clear to auscultation Cardiovascular RRR, no murmur, no edema Gastrointestinal (Abdomen) normal bowel sounds, soft, nontender, no hepatosplenomegaly Results & Data Results & Data Laboratory Results . Diagnostic Findings . X-rays of the left knee were reviewed. Shows advanced left knee DJD. Is got complete loss of medial joint space. Is got subchondral sclerosis. Right knee replacement looks me good position without problems. PG Care Time/CCT Total # of Minutes Spent Total Time Spent with Patient: Total time spent is greater than 50% in coordination of care (as documented) at patient's floor/unit and/or counseling patient: Coding Level of Care Code None Diagnoses Left knee DJD M17.12 Status post total right knee replacement Z96.651
[~2023-12-08 06:48] MED LIST changes: -ACETAMINOPHEN 500 MG TAB PO SCH; +BUPIVACAINE 0.5 % 5 MG/1 ML PF 10ML VIAL ONE; -BUPIVACAINE LIPOSOME/PF 266 MG, BUPIVACAINE/EPINEPHRINE 50 ML, SODIUM CHLORIDE 0.9% 30 ... INFIL SCH; +EPINEPHrine INJ 1 MG/ML AMP ONE; -FAMOTIDINE 20 MG TAB PO SCH; -LR 500ML BOLUS, THEN 15ML/HR IV SCH; -LR 60ML/HR IV SCH; -METOCLOPRAMIDE HCL 10 MG TABLET PO SCH; +ROPIVACAINE 0.5% 5 MG/ML 30 ML VIAL ONE; -TRANEXAMIC ACID 1,000 MG **IV Intra-op IV SCH; -ceFAZolin 2000MG 2,000 MG/15 ML SYR IV SCH
--- NOTE | 2023-12-08 06:54 | History & Physical Bridge Note ---
Date of Service December 08, 2023 History & Physical Bridge Note I have examined the patient, reviewed the History & Physical and in the interval since the performance of the History & Physical I have noted the following changes of clinical significance: no changes noted
[2023-12-08] MEDS ORDERED: MIDAZOLAM HCL 1 MG/ML 2ML VIAL ONE (07:45)
[2023-12-08] MEDS ORDERED: PROPOFOL IV EMULSION 10 MG/ML 20 ML VIAL IV ONE ×2 (07:45)
[2023-12-08] MEDS ORDERED: fentaNYL citrate PF 100 MCG/2 ML VIAL ONE (07:46)
[2023-12-08] MEDS ORDERED: ONDANSETRON INJ 2 MG/ML 2 ML VIAL ONE (08:04)
[2023-12-08] MEDS ORDERED: DEXAMETHASONE SOD INJ 4 MG/ML VIAL ONE (08:05)
[2023-12-08] MEDS: ACETAMINOPHEN 500 MG TAB PO SCH ×2 (08:08→13:59)
[2023-12-08] MEDS: METOCLOPRAMIDE HCL 10 MG TABLET PO SCH (08:08)
[2023-12-08] MEDS: FAMOTIDINE 20 MG TAB PO SCH (08:08)
[2023-12-08] MEDS: CeleBREX 200 MG CAP PO SCH (08:08)
[2023-12-08] MEDS: LR 60ML/HR IV SCH (08:15)
[2023-12-08] MEDS: LR 500ML BOLUS, THEN 15ML/HR IV SCH (08:15)
[2023-12-08] MEDS: ceFAZolin 2000MG 2,000 MG/15 ML SYR IV SCH ×2 (09:15→18:13)
[2023-12-08] MEDS ORDERED: ePHEDrine sulfate 50 MG/5 ML SYR ONE (09:47)
[2023-12-08] MEDS: ORTHO JOINT ANESTHETIC ONE (09:55)
[2023-12-08] MEDS ORDERED: ePHEDrine sulfate 50 MG/ML AMP ONE (09:55)
[2023-12-08] MEDS: TRANEXAMIC ACID 1,000 MG **IV Intra-op IV SCH (10:11)
[2023-12-08] MEDS: ROPIV 0.5% 246mg, Ketorolac 30mg, EPINEPHrine 0.5mg in NSS INFIL SCH (10:18)
[2023-12-08] MEDS ORDERED: ATROPINE SULFATE 0.1 MG/ML 10ML SYR IV PRN (10:19)
[2023-12-08] MEDS ORDERED: ePHEDrine sulfate 50 MG/ML AMP IV PRN (10:19)
--- NOTE | 2023-12-08 11:05 | Operative Report ---
PG Post Operative Report Pre & Post Diagnosis Operation Date: 12/08/23 08:50 Pre-Op Diagnosis: Left Knee Degenrative Joint Disease Post-Op Diagnosis: Left Knee Degenrative Joint Disease I identified the patient and participated in the time-out.: Yes Procedure Operation Date: 12/08/23 08:50 Actual Procedures p Left Total Knee Arthroplasty(Left) - Ryland Muse MD Surgeon Ryland Muse MD Fence Erector Marcel Romero PA-C Estimated Blood Loss 50 Findings Consistent with Post-Op Diagnosis Operative findings were advanced left knee medial compartment DJD. He had pretty extensive grade 4 [id number] disease in the medial compartment. The rest of his knee is pretty well-preserved. Joint effusion. Specimens Left knee sent for pathology. Anesthesia Type Spinal MAC Complications none Disposition Accompanied Patient To Recovery: No Indications Patient is a 68-year-old gentleman is had a long history of bilateral knee pain discomfort describes gotten worse over time. He has been through extensive conservative treatment the past without success. He had his right knee replaced about 2 years ago was done well from this. He continued to be limited by left knee pain. Failed conservative measures. He elected proceed with left total knee arthroplasty. Description of Procedure Operative implants consist of: 1. Biomet Vanguard size 67.5 left Po stabilized femoral component. 2. Biomet size 75 tibial tray. 3. 12 mm post stabilized polyethylene insert. 4. 31 x 8 all poly patella. The patient was taken the operating, identified, and placed on the operating table in the supine position. All contact areas were appropriately padded. IV antibiotics arrived by anesthesia team. A spinal anesthetic and adductor canal block had been applied in the holding area. I left thigh tourniquet was then placed. Left lower extremity then prepped and draped in usual sterile fashion. The left leg was elevated exsanguinated with use of an Esmarch and a turn was placed at 300 mmHg. An anterior approach to the left knee was then performed to longitudinal incision centered over the patella. Sharp dissection was carried through subcutaneous tissue down the extensor mechanism. A medial parapatellar arthrotomy was then performed. Some subperiosteal dissection was carried out medially. The fat pad was resected from Neath patella tendon. Lateral pa tellofemoral ligament was released. Patella subluxated laterally and the knee was flexed. The osteophytes taken distal femur. The ACL and PCL were then released from distal femur the tibia subluxated anteriorly. The external treatment LYMErix then placed the interface the tibia and adjusted 14 mm medially. Proximal tibial cut was made remove about 2 mm of bone from the medial side. Tibia sized to a size 75. Attention drawn the femur. The distal femur examined the sharp drop with intramedullary canal was suction. A left 6 degree valgus cutting guide was placed. The distal femoral cutting block was pinned in place. Distal femoral cut was made take an additional 3 mm of bone off distal femur. The femur was then sized to a size 67.5. The AP cutting block was pinned parallel to the epicondylar axis which was 5 degrees of external rotation. The anterior cut, anterior chamfer, posterior cut, posterior chamfer cuts were made. The box cutting guide was placed in just slight lateral and the box cut was made. The knee was flexed. The remnants of the medial and lateral menisci were excised. The osteophytes taken off the posterior aspect the femur. Trial femoral component was placed. The tibial tray was pinned Jeri external rotation and the drill and stem punch used to create defect in proximal tibia for the tibial tray. The knee was then trialed and the 12 mm insert fit most appropriately. Attention drawn the patella. The patella was cleaned of all soft tissue. Patella thickness measured 23 mm in thickness and was cut down to 14. Was sized to a size 31 patella. The lug holes were drilled for 31 patella. The lateral osteophyte was removed. Patella button was placed. Knee was taken through range of motion patella tracked nicely with no thumbs test. Attention drawn to placing the permanent components. All trial components were removed. Bone plug was placed into this femur limit blood loss. Double batch Palacos G cement was mixed. A Biomet Vanguard size 67.5 left posterior by femoral component, a size 75 tibial tray, a 12 mm post stabilized polyethylene insert, and a 31 x 8 all poly patella then cemented in place. Knee was brought out into full extension till cement hardened. Final cement check was then performed. The pericapsular tissues were injected total 100 cc of orthopedic good joint mix. The patient did receive 1 g tranexamic a zita. The tourniquet was then let down for final tourniquet time of 54 minutes. Hemostasis assured use electrocautery. The extensor Metros then closed with combination 1 PDS suture #1 Vicryl suture in a [id number] fashion. Extensor Meclomen checked found to be intact. The subcutaneous tissues then closed with 2 Dexon suture in a buried interrupted fashion skin was closed skin albert. Leg was then cleaned and dried and sterile dressing with Xeroform, 4 fours, sterile ABD pad, sterile cast padding, Dawson bandage were applied. Patient then transferred to the recovery room in stable condition. Patient tolerated procedure well and there were no complications. Marcel Romero, my physician embroidery assistant, was present for the entire procedure. His assistance was essential and required for appropriate patient positioning, prepping and draping, surgical exposure, performing the technical details of the operation, placement the implants, closure of the wound, and placement of the sterile bandage. I attest to the content of the Intraoperative Record and any orders documented therein. Any exceptions are noted below.
--- NOTE | 2023-12-08 11:55 | XRay Report ---
XR knee LT 1 or 2V routine CLINICAL HISTORY: Postoperative evaluation. COMPARISON: Left knee radiographs October 20, 2023. FINDINGS: Alignment of the total left knee arthroplasty is anatomic. There is no periprosthetic frac ture or unexpected radiopaque foreign body. There are skin albert. IMPRESSION: Expected findings following total left knee arthroplasty. ACT 112: Negative or not required by law. Electronically signed by: Ronaldo Harrison M.D. 12/08/2023 11:53 AM
--- NOTE | 2023-12-08 12:14 | Anesthesiology Progress Note ---
Date of Service December 08, 2023 Anesthesia Post Procedure Vital Signs Vital Signs: Temp Pulse Pulse Resp BP Pulse Ox O2 Del Method 12/08/23 12:10 71 14 141/70 H 98 Nasal Cannula 12/08/23 11:55 63 18 142/71 H 96 Nasal Cannula 12/08/23 11:45 66 16 145/68 H 92 Room Air 12/08/23 11:35 36.3 C L 70 18 145/63 H 94 Room Air 12/08/23 11:25 70 16 142/67 H 96 Room Air 12/08/23 11:15 62 15 132/72 98 Room Air 12/08/23 11:05 63 15 128/60 100 Oxymask 12/08/23 10:57 36.3 C L 66 16 115/53 L 100 Oxymask 12/08/23 07:58 36.5 C 64 20 160/95 H 96 Room Air O2 Flow Rate 12/08/23 12:10 2 12/08/23 11:55 2 12/08/23 11:45 12/08/23 11:35 12/08/23 11:25 12/08/23 11:15 12/08/23 11:05 4 12/08/23 10:57 6 12/08/23 07:58 Pain Intensity Generalized: Pain Intensity: 5 Transfer of Care Handoff Completed per policy Notes Mental Status: alert / awake / arousable Patient Amnestic to Procedure: Yes Nausea / Vomiting: adequately controlled Pain: adequately controlled Airway Patency, RR, SpO2: stable & adequate BP & HR: stable & adequate Hydration State: stable & adequate Neuraxial Anesthesia: was administered and sensory block is resolving Anesthetic Complications: no major complications apparent
[2023-12-08] MEDS ORDERED: CARBOHYDRATES FOR HYPOGLYCEMIA PO PRN ×2 (12:57→14:30)
[2023-12-08] MEDS ORDERED: NON-FORMULARY MEDICATION (Semaglutide [Ozempic] 1 mg/dose (2 mg/1.5 mL) Pen Injector) SQ SCH (12:57)
[2023-12-08] MEDS ORDERED: GLUCOSE 40% GEL 15 GM TUBE PO PRN ×2 (12:57→14:30)
[2023-12-08] MEDS ORDERED: GLUCOSE 10 TAB/TUBE PO PRN ×2 (12:57→14:30)
[2023-12-08] MEDS ORDERED: HYDROmorphone INJ 0.5 MG/0.5 ML SYR IV PRN (12:57)
[2023-12-08] MEDS ORDERED: DEXTROSE 50% 50 ML SYRINGE IV PRN ×2 (12:57→14:30)
[2023-12-08] MEDS ORDERED: PHARMACY GLYCEMIC MGMT CONSULT PRN (12:57)
[2023-12-08] MEDS ORDERED: MAGNESIUM HYDROXIDE SUSP 30 ML UDC PO PRN (12:57)
[2023-12-08] MEDS ORDERED: GLUCAGON FOR INJ 1 MG VIAL SQ PRN (12:57)
[2023-12-08] MEDS ORDERED: ONDANSETRON INJ 2 MG/ML 2 ML VIAL IV PRN (12:57)
[2023-12-08] MEDS ORDERED: bisacodyL 10 MG SUPP PR PRN (12:57)
[2023-12-08] MEDS ORDERED: NALOXONE HCL 0.4 MG/1 ML VIAL/CARP IV PRN (12:57)
[2023-12-08] MEDS ORDERED: ALUMINUM/MAGNESIUM SUSP 30 ML UDC PO PRN (12:57)
[2023-12-08] MEDS ORDERED: METOCLOPRAMIDE HCL INJ 5 MG/ML 2 ML VIAL IV PRN (12:57)
[2023-12-08] MEDS ORDERED: LEUPROLIDE 11.25 MG IM SCH (12:57)
[2023-12-08] MEDS ORDERED: BETAMETHASONE DIP AUG (DIPROLENE) 0.05% CR 15 GM TUBE EXT PRN (13:10)
[2023-12-08] MEDS: KETOROLAC TROMETHAMINE 15 MG/ML VIAL IV SCH (13:59)
[2023-12-08] MEDS: hydrOXYzine HCl 25 MG TAB PO SCH (13:59)
[2023-12-08] MEDS: GABAPENTIN 300 MG CAP PO SCH (13:59)
--- NOTE | 2023-12-08 14:24 | Pharmacy Report ---
Pharmacy Glycemic Short Note 2 - Date of Service December 08, 2023 - Glycemic Short BSG Results (Last 24 hours): 12/08/23 12/08/23 12/08/23 07:53 11:00 12:47 POC Glucose 162 H 178 H 179 H OUTPATIENT ANTIDIABETIC REGIMEN: * Insulin aspart (Fiasp FlexTouch) 10 units SQ qAM * Empagliflozin 25mg PO qAM * Metformin 1gm PO BID * Ozempic 2mg SQ weekly (on Sundays) * HbA1c: 7.0% (11/13/23) ASSESSMENT: * Mr Grande is a 68yo diabetic M, POD 0 s/p L TKA with Dr Muse this morning. * It appears as though pt received 4mg IV dexamethasone pre-operatively. Pt is ordered 10mg IV DXM x1 dose tomorrow morning. Expect to see steroid-inducted hyperglycemia. * Pt was initiated on SQ basal/bolus insulin regimen on admission. * Pharmacy will continue to follow and adjust regimen as indicated. PLAN FOR INPATIENT GLYCEMIC CONTROL: * Hold outpatient oral diabetes medications * Basal insulin * Lantus 20 units SQ x1 dose * will re-assess tomorrow morning * Bolus insulin * NovoLog per scale ACHS or Q6hrs while NPO * Goal Range: Low 110 mg/dL - High 140 mg/dL * Correction Factor: 25 mg/dL/unit * Nutritional / Prandial insulin per carb ratio of 1 unit per 7 grams CHO consumed
[2023-12-08] MEDS ORDERED: GLUCAGON FOR INJ 1 MG VIAL IM PRN (14:30)
[2023-12-08] MEDS: ASCORBIC ACID 500 MG TAB PO SCH (16:44)
[2023-12-08] MEDS: TRANEXAMIC ACID / 0.7% NACL 1,000 MG/100 ML BAG IV SCH (16:45)
[2023-12-08] MEDS: LANTUS PER UNIT CHARGE SC ONE (17:03)
[2023-12-08] MEDS: INSULIN ASPART PER UNIT CHARGE SC SCH (17:03)
[2023-12-08] MEDS: SODIUM CHLORIDE 0.9% 1,000 ML IV SCH (18:14)
[2023-12-08] MEDS: CALCIUM 600MG + VIT D 400 IU TAB PO SCH (20:18)
[2023-12-08] MEDS: SENNA 8.6 MG TAB PO SCH (20:18)
[2023-12-08] MEDS: ATORVASTATIN 40 MG TAB PO SCH (20:19)
[2023-12-08] MEDS: ASPIRIN 81 MG ECTAB PO SCH (20:19)
[2023-12-08] MEDS: DOCUSATE SODIUM 100 MG CAP PO SCH (20:19)
[2023-12-08] MEDS: OXYBUTYNIN CHLORIDE XL 5 MG TABCR PO SCH (20:20)
[2023-12-08] MEDS: OMEGA-3 (PURIFIED FISH OIL) 1 GM CAP PO SCH (20:20)
[2023-12-08] MEDS: SERTRALINE HCL 50 MG TABLET PO SCH (20:21)
[2023-12-08] MEDS: rOPINIRole HCL 1 MG TABLET PO SCH (20:21)
[2023-12-08] MEDS: LISINOPRIL/HCTZ 20/12.5MG 1 TAB TAB PO SCH (20:21)
[2023-12-08] MEDS: LABETALOL HCL 100 MG TAB PO SCH (20:22)
[2023-12-08] MEDS ORDERED: SENNA 8.6 MG TAB PO SCH (21:00)
[2023-12-09 06:40] LABS: Hematocrit (blood only) 28.5 % (42.0-52.0); Mean Corpuscular Hemoglobin 28.8 pg (25.0-34.0); Mean Corpuscular Hgb Conc 31.6 g/dL (32.0-36.0); Mean Corpuscular Volume 91.1 fL (80.0-100.0); Platelet Count 172 K/uL (130-400); RDW Coefficient of Variation 14.2 % (11.5-14.5); RDW Standard Deviation 46.5 fL (36.4-46.3); Red Blood Count 3.13 M/uL (4.70-6.10); White Blood Count 8.76 K/ul (4.8-10.8)
[2023-12-09 06:57] LABS: BUN Creatinine Ratio 24.1 (10-20); Calcium 9.4 mg/dl (8.6-10.3); Creatinine Clr Calc Pharmacy 72.2 ml/min; Est GFR (African American) 76.7 ml/min; Est GFR (Non-African American) 66.2 ml/min; Potassium 4.8 mmol/L (3.5-5.1)
[2023-12-09] MEDS: oxyCODONE HCL IR 5 MG TAB (IMMEDIATE RELEASE) PO PRN (06:57)
--- NOTE | 2023-12-09 07:23 | Surgery Progress Note ---
Date of Service December 09, 2023 Assessment & Plan (1) Status post left knee replacement: Plan: 68-year-old gentleman diabetic postop day 1 from left knee replacement doing pretty well. His pain is controlled. He is neurologically intact. He is anemic with some underlying chronic anemia but without symptoms. Plan: 1. DVT prophylaxis including thigh-high teds, SCDs, aspirin twice a day. 2. PT/OT. Weight-bear as tolerated left total knee protocol. 3. Pain control doing okay with current pain regimen. 4. Disposition plan to discharge to home with some home health if he does okay in therapy today. (2) Status post right knee replacement: Admission and Anticipated Discharge Date Admission Date: December 08, 2023 Subjective 68-year-old gentleman postop day 1 from a left knee replacement. He is doing pretty well. Pain is controlled. No chest pain or shortness of breath. Not feeling dizzy or lightheaded. Physical Exam Physical Exam: Physical exam shows a pleasant middle-age male. He is lying bed looks pretty comfortable. Examination left leg reveals leg to be well aligned. Dressings clean dry and intact. He can dorsiflex and plantarflex his foot appropriately. He is neurologically intact. Respiratory: normal respiratory effort, lungs clear to auscultation Cardiovascular: RRR, no murmur, no edema Gastrointestinal (Abdomen): normal bowel sounds, soft, nontender, no hepatosplenomegaly Results & Data Vital Signs (Past 12 Hours) Vital Signs Temp Pulse Resp BP Pulse Ox O2 Del Method 12/09/23 03:30 36.3 C L 93 H 18 159/91 H 95 Room Air 12/08/23 23:00 36.5 C 82 18 129/77 94 Room Air Laboratory Results Hemoglobin is 9.0. Hematocrit is 28.5. Electrolytes are stable. PG Care Time/CCT Total # of Minutes Spent Total Time Spent with Patient: Total time spent is greater than 50% in coordination of care (as documented) at patient's floor/unit and/or counseling patient: Coding Level of Care Code 89742 Post Operative Follow-Up Diagnoses Status post left knee replacement Z96.652 Status post right knee replacement Z96.651
[2023-12-09] MEDS: LEFLUNOMIDE 10 MG TAB PO SCH (08:07)
[2023-12-09] MEDS: buPROPion XL 150 MG TABCR PO SCH (08:08)
[2023-12-09] MEDS: dilTIAZem HCL 180 MG CAPCR PO SCH (08:09)
[2023-12-09] MEDS: FEXOFENADINE HCL 180 MG TAB PO SCH (08:09)
[2023-12-09] MEDS: PANTOprazole 40 MG TAB PO SCH (08:10)
[2023-12-09] MEDS: TAMSULOSIN HCL 0.4 MG CAP PO SCH (08:10)
[2023-12-09] MEDS: MULTIVITAMIN TAB PO SCH (08:10)
[2023-12-09] MEDS: CHOLECALCIFEROL 25 MCG (1000 UNITS) TAB PO SCH (08:11)
[2023-12-09] MEDS: dexAMETHasone 10 MG in SYRINGE 0 ML IV SCH (08:12)
[2023-12-09] MEDS: LANTUS PER UNIT CHARGE SC ONE (08:18)
[2023-12-09] MEDS ORDERED: EMPAGLIFLOZIN 25 MG TAB PO SCH (09:00)
[2023-12-09] MEDS ORDERED: NON-FORMULARY MEDICATION (Insulin Aspart (Niacinamide) [Fiasp Flextouch U-100 Insulin] 100 SQ SCH (09:00)
--- NOTE | 2023-12-16 17:24 | Discharge Summary ---
Date of Service December 16, 2023 Discharge Data Procedures Performed Operation Date: 12/08/23 08:50 Actual Procedures p Left Total Knee Arthroplasty(Left) - Ryland Muse MD Hospital Course (1) Status post left knee replacement: This is a 68 year old patient admitted on 12/08/23 and underwent total knee arthroplasty. He tolerated the procedure well and there were no complications. Transferred to the PACU post op and later to the orthopedic floor for further care. He was given ancef for antibiotic prophylaxis. He was also given ETHAN stockings, SCDs, and aspirin for DVT prophylaxis. Hemoglobin, hematocrit, and vital signs were monitored during his hospital stay and remained stable. Did not require any blood transfusions. There were no complications during his hospital stay. By post op day #1 the patient was tolerating a diabetic diet, pain was reasonably controlled with oral pain medicine, and he was participating in physical therapy. On post op day #1 the patient was discharged home and set up with home health care. He was given printed discharge instructions including prescriptions for extra strength tylenol, aspirin, cefadroxil, ketorolac, zofran, senokot, oxycodone, and flomax. Continue physical therapy, weight bearing as tolerated. Continue ETHAN stockings. Follow up approximately 2 weeks post op or sooner if there are problems or concerns. Coding Level of Care Code None Diagnoses Status post left knee replacement Z96.652
== END 2023-12-09 11:39 | disposition home health service (06) ==
LOC: ASU 06:48 → 3E 06:48
DX: E11.9 Type 2 diabetes mellitus without complications; Z79.899 Other long term (current) drug therapy; I10 Essential (primary) hypertension; Z79.82 Long term (current) use of aspirin; M25.762 Osteophyte, left knee; E66.9 Obesity, unspecified; Z96.651 Presence of right artificial knee joint; F41.9 Anxiety disorder, unspecified; Z90.79 Acquired absence of other genital organ(s); Z79.84 Long term (current) use of oral hypoglycemic drugs; M25.462 Effusion, left knee; Z68.35 Body mass index [BMI] 35.0-35.9, adult; G25.81 Restless legs syndrome; C61 Malignant neoplasm of prostate; M79.7 Fibromyalgia; D64.9 Anemia, unspecified; E78.00 Pure hypercholesterolemia, unspecified; K21.9 Gastro-esophageal reflux disease without esophagitis; F32.A Depression, unspecified; G89.29 Other chronic pain; Z79.4 Long term (current) use of insulin; M17.12 Unilateral primary osteoarthritis, left knee; M54.9 Dorsalgia, unspecified; Z87.891 Personal history of nicotine dependence; Z79.85 Long-term (current) use of injectable non-insulin antidiabetic drugs; M65.9 Synovitis and tenosynovitis, unspecified; Z79.818 Long term (current) use of other agents affecting estrogen receptors and estrogen levels; Z88.0 Allergy status to penicillin